=== PATIENT | female | born 1985 | race Caucasian/White ===

== ENCOUNTER → 2017-02-23 | Outpatient (CLI) | payer OTHER | END | disposition home or self-care (01) | LOC: C.LAB 02:16 | DX: Z02.83 Encounter for blood-alcohol and blood-drug test (principal) ==

== ENCOUNTER 2017-04-24 01:50 | Emergency (ER) | payer SELFPAY ==
[2017-04-24 01:50] VITALS: TEMP 36.6; O2SAT 90
[2017-04-24] MEDS ORDERED: HALOPERIDOL LACTATE 5 MG/ML 1 ML VIAL IM STA (02:30)
[2017-04-24] MEDS ORDERED: LORAZEPAM 2 MG/ML 1 ML VIAL IM STA (02:30)
[2017-04-24] MEDS ORDERED: LORAZEPAM 2 MG/ML 1 ML VIAL ONE (02:32)
[2017-04-24] MEDS ORDERED: HALOPERIDOL LACTATE 5 MG/ML 1 ML VIAL ONE (02:32)
[2017-04-24 02:39] LABS: BLOOD UREA NITROGEN 7 mg/dl (7-18); BUN/CREATININE RATIO 9.6 (10-20); CALCIUM 9.1 mg/dl (8.5-10.1); CARBON DIOXIDE 25 mmol/L (21-32); CHLORIDE 113 mmol/L (98-107); CREATININE 0.69 mg/dl (0.60-1.20); GLUCOSE 99 mg/dl (70-99); POTASSIUM 3.4 mmol/L (3.5-5.1); SODIUM 148 mmol/L (136-145)
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
--- NOTE | 2017-04-24 08:01 | EMERGENCY ROOM VISIT NOTE ---
ED Visit Note First contact with patient: 07:03 I received sign out from Zonia Roberts PA-C at [id number]. Pt presented with alcohol intoxication. On arrival, she became very agitated requiring requiring multiple doses of IM Ativan and Haldol. I evaluated the patient at 10:30 AM, she is now awake, alert, oriented 4, with a normal neurologic exam. She has been ambulatory without difficulty. She states that she feels much better and would like to go home. Her repeat vital signs have been stable. She was given food and drink, which she tolerated well. She has a friend that is taking her home. Patient was discharged home in stable condition and ambulatory. Current/Historical Medications No Active Prescriptions or Reported Meds Allergies Coded Allergies: No Known Allergies (Unverified , 04/24/17) Vital Signs Date Time Temp Pulse Resp B/P (MAP) Pulse Ox O2 Delivery O2 Flow Rate FiO2 04/24/17 10:53 77 16 102/72 96 04/24/17 09:00 78 16 98/58 97 Room Air 04/24/17 08:04 90 15 109/62 97 Room Air 04/24/17 07:26 100 16 108/67 97 Room Air 04/24/17 07:14 90 15 83/42 95 Room Air 04/24/17 06:10 88 04/24/17 06:10 88 104/54 96 Room Air 04/24/17 03:37 84 98/63 95 Room Air 04/24/17 02:50 134 04/24/17 02:08 119 04/24/17 01:57 123/84 04/24/17 01:50 90 Room Air 04/24/17 01:50 36.6 109 18 123/84 90 Room Air 04/24/17 01:50 90 Room Air Laboratory Results 04/24/17 02:09 Test 04/24/17 02:09 Anion Gap 10.0 mmol/L (3-11) Estimated GFR () 135.4 Estimated GFR (Non- 116.8 BUN/Creatinine Ratio 9.6 (10-20) Calcium Level 9.1 mg/dl (8.5-10.1) Ethyl Alcohol mg/dL 314.0 mg/dl (0-3) Medications Administered Medications (Trade) Dose Ordered Sig/Basilia Route Start Time Stop Time Status Last Admin Dose Admin Lorazepam (Ativan Inj) 2 mg STK-MED ONCE .ROUTE 04/24/17 02:32 04/24/17 02:33 DC 04/24/17 02:36 2 MG Haloperidol Lactate (Haldol Inj) 10 mg STK-MED ONCE .ROUTE 04/24/17 02:32 04/24/17 02:33 DC 04/24/17 02:37 5 MG Departure Information Impression Primary Impression: Alcohol abuse Additional Impression: Combative behavior Dispostion Home / Self-Care Condition GOOD Prescriptions No Active Prescriptions or Reported Meds Referrals No Doctor, Assigned (PCP) Forms HOME CARE DOCUMENTATION FORM, IMPORTANT VISIT INFORMATION Patient Instructions My [facility] Additional Instructions For your safety and the staff safety your sedated last day as you are combative. Recommend that you seek help for your alcohol problems. This is your third ER visit for alcohol-related incidents. Keep well-hydrated. Tylenol every 6 hours as needed for pain (Maximum 3000 mg Tylenol in 24 hr period). Follow up with family doctor and/or health services as needed. No driving for the next 24 hours. Recommend no alcohol for the next 48 hours and avoid binge drinking in the future. Return to ER sooner for chest pain, abdominal pain, worsening signs or symptoms or as needed. Problem Qualifiers
[2017-04-24 10:53] VITALS: BP 102/72; PULSE 77; O2SAT 96
== END 2017-04-24 10:53 | disposition home or self-care (01) ==
LOC: C.EDB 01:51
DX: F10.920 Alcohol use, unspecified with intoxication, uncomplicated (principal); R45.6 Violent behavior

== ENCOUNTER → 2017-10-20 | Outpatient (CLI) | payer OTHER | END | disposition home or self-care (01) | LOC: C.LABSPEC 14:01 | PROVIDERS: ATTEND Physician Assistant | DX: Z01.419 Encounter for gynecological examination (general) (routine) without abnormal findings (principal) ==

== ENCOUNTER → 2017-10-20 | Outpatient (CLI) | payer OTHER | END | disposition home or self-care (01) | LOC: C.PAPS 14:28 | PROVIDERS: ATTEND Physician Assistant | DX: Z01.419 Encounter for gynecological examination (general) (routine) without abnormal findings (principal) ==